=== PATIENT | male | born 1985 | race Caucasian/White ===

== ENCOUNTER → 2019-09-20 | Outpatient (CLI) | payer BC | END | disposition home or self-care (01) | LOC: MRI 11:00 | DX: M54.5 Low back pain (principal); G89.29 Other chronic pain ==

== ENCOUNTER → 2020-06-24 | Outpatient (CLI) | payer BC ==
[~2020-06-24] MED LIST: OMEPRAZOLE40 MG PO
[2020-06-24 20:05] LABS: HEMATOCRIT 45.4 % (42.0-52.0); MEAN CORPUSCULAR HGB 29.6 pg (27.0-31.0); MEAN CORPUSCULAR HGB CONC 33.3 g/dl (33.0-37.0); MEAN PLATELET VOLUME 10.1 fl (9.6-12.3); RED BLOOD COUNT 5.1 10*6/uL (4.50-5.90); RED CELL DISTRI WIDTH 11.7 % (0-14.5); WHITE BLOOD COUNT 6.7 10*3/uL (4.8-10.8)
[2020-06-24 20:37] LABS: ALKALINE PHOSPHATASE 55 U/L (45-117); BUN 18 mg/dl (7-24); CHLORIDE 108 mmol/L (98-107); CHOLESTEROL 146 mg/dL (<200); CREATININE 1.05 mg/dL (0.70-1.30); HDL CHOLESTEROL 49 mg/dl (40-60); LDL CHOLESTEROL 71 mg/dL (9-159); POTASSIUM 3.6 mmol/L (3.5-5.1); SGOT/AST 30 IU/L (3-35); SGPT/ALT 43 U/L (12-78); SODIUM 141 mmol/L (136-145); TOTAL PROTEIN 6.8 gm/dL (6.4-8.2); TRIGLYCERIDES 128 mg/dl (<150); VLDL CHOLESTEROL 26 mg/dL (6-40)
[2020-06-26 13:07] LABS: PROSTATE SPECIFIC AG FREE 0.15 ng/mL; PROSTATE SPECIFIC AG, SERUM 0.3 ng/mL (0.0-4.0)
[2020-06-27 14:09] LABS: TESTOSTERONE FREE, (DIRECT) 10.7 pg/mL (8.7-25.1)
== END | disposition home or self-care (01) ==
LOC: LAB 19:09
PROVIDERS: ATTEND Family Medicine
DX: M79.674 Pain in right toe(s) (principal); R53.83 Other fatigue; R53.1 Weakness

== ENCOUNTER → 2020-07-09 | Outpatient (CLI) | payer BC | END | disposition home or self-care (01) | LOC: LAB 18:17 | PROVIDERS: ATTEND Family Medicine | DX: M25.551 Pain in right hip (principal); M25.552 Pain in left hip; M79.10 Myalgia, unspecified site ==

== ENCOUNTER → 2020-08-18 | Outpatient (CLI) | payer BC | END | disposition home or self-care (01) | LOC: COVID19 10:30 | PROVIDERS: ATTEND Family Medicine | DX: U07.1 COVID-19 (principal); R91.8 Other nonspecific abnormal finding of lung field ==

== ENCOUNTER 2020-08-19 22:43 | Emergency (ER) | payer BC ==
[~2020-08-19] VITALS: Ht 175.2 cm; Wt 81.6 kg
[2020-08-19 23:50] LABS: BASO % 0.1 % (0.0-1.0); HEMATOCRIT 41.9 % (42.0-52.0); LYMPH # 0.8 10*3/uL (1.3-4.4); LYMPH % 9.8 % (27.0-41.0); MEAN CELL VOLUME 87.3 fl (80.0-94.0); MEAN CORPUSCULAR HGB 29.4 pg (27.0-31.0); MEAN CORPUSCULAR HGB CONC 33.7 g/dl (33.0-37.0); MONO % 11.5 % (3.0-9.0); NEUT # 6.5 10*3/uL (2.3-7.9); NEUT % 78.1 % (47.0-73.0); PLATELET COUNT AUTOMATED 169 10*3/uL (130-400); RED CELL DISTRI WIDTH 11.7 % (0-14.5); WHITE BLOOD COUNT 8.3 10*3/uL (4.8-10.8)
[2020-08-20 00:01] LABS: ACT PARTIAL THROMBO TIME 28.5 SECONDS (20.0-32.1)
[2020-08-20 00:23] LABS: ALBUMIN 3.5 gm/dl (3.1-4.5); ALKALINE PHOSPHATASE 62 U/L (45-117); BUN 13 mg/dl (7-24); CHLORIDE 105 mmol/L (98-107); CREATININE 0.97 mg/dL (0.70-1.30); LDH 146 U/L (87-241); POTASSIUM 3.6 mmol/L (3.5-5.1); SGOT/AST 29 IU/L (3-35); SGPT/ALT 51 U/L (12-78); SODIUM 138 mmol/L (136-145); TOTAL PROTEIN 6.7 gm/dL (6.4-8.2)
[2020-08-20] MEDS ORDERED: OMEPRAZOLE40 MG PO (01:23)
== END 2020-08-20 09:01 | disposition home or self-care (01) ==
LOC: ED 22:43
PROVIDERS: Hospitalist
DX: U07.1 COVID-19 (principal); J18.8 Other pneumonia, unspecified organism; J45.909 Unspecified asthma, uncomplicated; Z79.899 Other long term (current) drug therapy

== ENCOUNTER 2024-07-28 15:40 | Emergency (ER) | payer BC ==
[~2024-07-28] VITALS: Ht 177.8 cm; Wt 83.9 kg
[2024-07-28] MEDS ORDERED: Sulfamethoxazole/Trimethopri 1 TAB TAB PO ONE (16:15)
[2024-07-28] MEDS ORDERED: SEPTDS PO (17:09)
== END 2024-07-28 17:17 | disposition home or self-care (01) ==
LOC: ED 15:40
DX: L03.012 Cellulitis of left finger (principal); J45.909 Unspecified asthma, uncomplicated